=== PATIENT | female | born 1945 | race Asian ===

== ENCOUNTER 2019-04-14 12:12 | Emergency (ER) | payer BC ==
[~2019-04-14] VITALS: Ht 157.5 cm; Wt 50.0 kg
[2019-04-14 12:18] VITALS: Ht 157.5 cm; Wt 50.0 kg
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
[2019-04-14] MEDS ORDERED: HYDR-4011 PO (14:10)
[2019-04-14] MEDS ORDERED: HYDROCODONE/APAP (10/325) TAB PO ONE (14:30)
[2019-04-14 14:36] VITALS: BP 130/70; PULSE 68; RESP 16
== END 2019-04-14 14:37 | disposition home or self-care (01) ==
LOC: E/R 12:12
DX: S00.11XA Contusion of right eyelid and periocular area, initial encounter (principal); S00.12XA Contusion of left eyelid and periocular area, initial encounter; R07.9 Chest pain, unspecified; V49.50XA Passenger injured in collision with unspecified motor vehicles in traffic accident, initial encounter
CPT/HCPCS: 70450; 71045; 72125